=== PATIENT | male | born 1970 | race Caucasian/White ===

== ENCOUNTER → 2023-07-27 09:59 | Outpatient (POV) | payer MEDICAID, SELFPAY ==
[2023-07-27 10:30] VITALS: BP 162/107; PULSE 87; RESP 18; O2SAT 99; BMI 23.3
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
== END | disposition home or self-care (01) ==
PROVIDERS: PCP Family Medicine; Visit Provider Nurse Anesthetist, Certified Registered
DX: M54.16 Radiculopathy, lumbar region (principal); M46.1 Sacroiliitis, not elsewhere classified; M79.601 Pain in right arm; G89.29 Other chronic pain
CPT/HCPCS: 99202; G0463